=== PATIENT | female | born 1980 | race Caucasian/White ===

== ENCOUNTER 2016-10-10 22:56 | Emergency (ER) | payer OTHER ==
--- NOTE | 2016-10-11 01:00 | ED NURSING NOTES ---
Clinical Report - Nurses [facility] [address] [place] [address] 10/10/2016 22:56 Patient: ANA PICKETT TRIAGE Triage time 2316. Acuity: LEVEL 3. Chief Complaint: FEVER, SORE THROAT and BODY ACHES and SINUS DRAINAGE, SINUS CONGESTION, CHILLS, RUNNY NOSE and FATIGUE. --23:21 Damian Vincent R.N. 23:14 10/10/16. BP: 105/50. HR: 110. RR: 18. O2 saturation: 98%. Temp: 99.7 F. Pain level now 7/10. --23:21 Damian Vincent R.N. Weight: 106.1 kg stated. Height/Length: 66 inches Per Patient. BMI: 37.8. --23:21 Damian Vincent R.N. Medications Flonase Nasal. --23:18 Damian Vincent R.N. Allergies Augmentin. --23:18 Damian Vincent R.N. Maxalt. --23:19 Damian Vincent R.N. Zolmig. --23:20 Damian Vincent R.N. History Arrived by private vehicle. Historian: spouse and patient. Accompanied by spouse. Onset. (3 days ago). 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 PAST MEDICAL HX: Last normal menstrual period was 2 weeks ago. SOCIAL HX: No alcohol use or drug use. FALL RISK ASSESSMENT: Fall risk assessment completed. No fall risk identified. NUTRITIONAL RISK ASSESSMENT: The nutritional risk assessment revealed no deficiencies. FUNCTIONAL ASSESSMENT: Functional assessment: no impairments noted. LEARNING NEEDS ASSESSMENT: The learning needs assessment revealed no barriers. SKIN INTEGRITY ASSESSMENT: Skin integrity risk assessment completed. No skin integrity risk identified. --23:21 Damian Vincent R.N. PROBLEMS: Sinus Problems. Sinusitis. Acute Pain. Headache. Chronic Headache. Sick Contact. Gastroesophageal Reflux Disease. Immunizations. LNMP - Last Normal Menstrual Period. . Palpitations. Hernia. GERD. --23:20 Damian Vincent R.N. ADDITIONAL SURGERIES: Cholecystectomy. . Endoscopy. Sinus Surgery. --23:20 Damian Vincent R.N. Interventions ID band on patient. --23:21 Damian Vincent R.N. PHYSICAL ASSESSMENT GENERAL / NEURO / PSYCH: Alert. Oriented X 4. She appears uncomfortable. HEENT: Pupils equal, round and reactive to light. Mucous membranes are pink. RESPIRATORY: Respirations not labored. Chest nontender. CVS: Normal sinus rhythm noted. Capillary refill less than 2 seconds. Pulses within normal limits. GI / : Abdomen soft. SKIN: Skin intact. Skin is warm and dry. Normal skin turgor. --23:22 Damian Vincent R.N. NURSING PROGRESS NOTES Patient gowned. Head of bed elevated. Reassurance given. Patient identifiers checked. Call light placed in reach. Bed placed in lowest position. Brakes of bed on. --23:22 Damian Vincent R.N. 00:26. Patient ID band checked for patient name and birthdate: patient confirmed. Clean catch urine collected with return of yellow-colored clear urine; sample sent to lab for urinalysis and HCG. Specimen labeled in the presence of the patient. --00:31 Omar Lua R.N. DISPOSITION / DISCHARGE Departure time: 103. Condition at departure: improved. No learning barriers present. Discharge instructions provided and reviewed with the patient and spouse. Reviewed warnings. Reviewed medication(s). Treatments reviewed. Patient and spouse verbalized understanding. Written instructions provided in Malay. The patient was discharged by the physician. She was discharged home and accompanied by spouse. She left the Emergency Department ambulatory and via private vehicle. Spouse driving. --01:08 Damian Vincent R.N. 01:07 10/11/16. BP: 111/50. HR: 88. RR: 18. O2 saturation: 99%. Temp: 99 F. Pain level now 0/10. --01:08 Damian Vincent R.N. Locked/Released at 10/11/2016 1:08 by Damian Vincent R.N.
--- NOTE | 2016-10-11 01:00 | ED ORDER SUMMARY ---
..... Patient: ANA PICKETT OrderSheet [facility] VisitID: [id number] [address] [place] [address] 35y, F Registration Date/Time: 10/10/2016 ORDER SHEET Weight: 106.1 kg (stated) Allergies: Augmentin, Maxalt, Zolmig GENERAL ORDERS: Rapid Influenza Screen (Nasal Pharyngeal) (swab) Urgent (23:29 10/10/2016 Staci LAURENT) (Ack 23:31 CHagerty ER Charter Boat Operator) (0:27 JBullard R.N.) UA-Culture if indicated Urgent (23:30 10/10/2016 Staci LAURENT) (Ack 23:31 CHagmarcela ER Charter Boat Operator) (0:30 JBullard R.N.) Urine Urgent (23:30 10/10/2016 Staci LAURENT) (Ack 23:31 CHagerty ER Charter Boat Operator) (0:30 JBullard R.N.) MEDICATION ORDERS: IV FLUIDS: ORDER SHEET NOTES: [Electronically signed by Damian Vincent R.N. (01:08 10/11/2016)] [Electronically signed by Dion Mckenzie MD (11:53 10/14/2016)] [Electronically locked/signed by Damian Vincent R.N. (01:08 10/11/2016)]
--- NOTE | 2016-10-11 01:00 | ED ORDER SUMMARY ---
..... Patient: ANA PICKETT OrderSheet [facility] VisitID: [id number] [address] [place] [address] 35y, F Registration Date/Time: 10/10/2016 ORDER SHEET Weight: 106.1 kg (stated) Allergies: Augmentin, Maxalt, Zolmig GENERAL ORDERS: Rapid Influenza Screen (Nasal Pharyngeal) (swab) Urgent (23:29 10/10/2016 Staci LAURENT) (Ack 23:31 CHagerty ER Slitter Cut Off Operator) (0:27 JBullard R.N.) UA-Culture if indicated Urgent (23:30 10/10/2016 Staci LAURENT) (Ack 23:31 CHagmarcela ER Slitter Cut Off Operator) (0:30 JBullard R.N.) Urine Urgent (23:30 10/10/2016 Staci LAURENT) (Ack 23:31 CHagerty ER Slitter Cut Off Operator) (0:30 JBullard R.N.) MEDICATION ORDERS: IV FLUIDS: ORDER SHEET NOTES: [Electronically signed by Damian Vincent R.N. (01:08 10/11/2016)] [Electronically signed by Dion Mckenzie MD (11:53 10/14/2016)] [Electronically locked/signed by Damian Vincent R.N. (01:08 10/11/2016)]
--- NOTE | 2016-10-11 01:00 | ED NURSING NOTES ---
Clinical Report - Nurses [facility] [address] [place] [address] 10/10/2016 22:56 Patient: ANA PICKETT TRIAGE Triage time 2316. Acuity: LEVEL 3. Chief Complaint: FEVER, SORE THROAT and BODY ACHES and SINUS DRAINAGE, SINUS CONGESTION, CHILLS, RUNNY NOSE and FATIGUE. --23:21 Damian Vincent R.N. 23:14 10/10/16. BP: 105/50. HR: 110. RR: 18. O2 saturation: 98%. Temp: 99.7 F. Pain level now 7/10. --23:21 Damian Vincent R.N. Weight: 106.1 kg stated. Height/Length: 66 inches Per Patient. BMI: 37.8. --23:21 Damian Vincent R.N. Medications Flonase Nasal. --23:18 Damian Vincent R.N. Allergies Augmentin. --23:18 Damian Vicnent R.N. Maxalt. --23:19 Damian Vincent R.N. Zolmig. --23:20 Damian Vincent R.N. History Arrived by private vehicle. Historian: spouse and patient. Accompanied by spouse. Onset. (3 days ago). 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 PAST MEDICAL HX: Last normal menstrual period was 2 weeks ago. SOCIAL HX: No alcohol use or drug use. FALL RISK ASSESSMENT: Fall risk assessment completed. No fall risk identified. NUTRITIONAL RISK ASSESSMENT: The nutritional risk assessment revealed no deficiencies. FUNCTIONAL ASSESSMENT: Functional assessment: no impairments noted. LEARNING NEEDS ASSESSMENT: The learning needs assessment revealed no barriers. SKIN INTEGRITY ASSESSMENT: Skin integrity risk assessment completed. No skin integrity risk identified. --23:21 Damian Vincent R.N. PROBLEMS: Sinus Problems. Sinusitis. Acute Pain. Headache. Chronic Headache. Sick Contact. Gastroesophageal Reflux Disease. Immunizations. LNMP - Last Normal Menstrual Period. . Palpitations. Hernia. GERD. --23:20 Damian Vincent R.N. ADDITIONAL SURGERIES: Cholecystectomy. . Endoscopy. Sinus Surgery. --23:20 Damian Vincent R.N. Interventions ID band on patient. --23:21 Damian Vincent R.N. PHYSICAL ASSESSMENT GENERAL / NEURO / PSYCH: Alert. Oriented X 4. She appears uncomfortable. HEENT: Pupils equal, round and reactive to light. Mucous membranes are pink. RESPIRATORY: Respirations not labored. Chest nontender. CVS: Normal sinus rhythm noted. Capillary refill less than 2 seconds. Pulses within normal limits. GI / : Abdomen soft. SKIN: Skin intact. Skin is warm and dry. Normal skin turgor. --23:22 Damian Vincent R.N. NURSING PROGRESS NOTES Patient gowned. Head of bed elevated. Reassurance given. Patient identifiers checked. Call light placed in reach. Bed placed in lowest position. Brakes of bed on. --23:22 Damian Vincent R.N. 00:26. Patient ID band checked for patient name and birthdate: patient confirmed. Clean catch urine collected with return of yellow-colored clear urine; sample sent to lab for urinalysis and HCG. Specimen labeled in the presence of the patient. --00:31 Omar Lua R.N. DISPOSITION / DISCHARGE Departure time: 103. Condition at departure: improved. No learning barriers present. Discharge instructions provided and reviewed with the patient and spouse. Reviewed warnings. Reviewed medication(s). Treatments reviewed. Patient and spouse verbalized understanding. Written instructions provided in Icelandic. The patient was discharged by the physician. She was discharged home and accompanied by spouse. She left the Emergency Department ambulatory and via private vehicle. Spouse driving. --01:08 Damian Vincent R.N. 01:07 10/11/16. BP: 111/50. HR: 88. RR: 18. O2 saturation: 99%. Temp: 99 F. Pain level now 0/10. --01:08 Damian Vincent R.N. Locked/Released at 10/11/2016 1:08 by Damian Vincent R.N.
--- NOTE | 2016-10-11 01:00 | ED CLINICAL REPORT ---
Clinical Report - Physicians/Mid Levels [facility] [address] [place] [address] 10/10/2016 22:56 Patient: ANA PICKETT Time Seen: 23:23 Oct 10 2016. Arrived- By private vehicle. Historian- patient. CPT: ER phys charges level 4 (#[id number]). HISTORY OF PRESENT ILLNESS Chief Complaint: COUGH, SORE THROAT, SINUS PAIN, FEVER, CHILLS and MUSCLE ACHES. 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 The illness is described as moderate. The patient has had a cough, fever, chills and muscle aches. She has had moderate amounts of yellow sputum. Similar symptoms previously: None. Recent medical care: Not recently seen/assessed. REVIEW OF SYSTEMS No nausea, vomiting, diarrhea, abdominal pain or pedal edema. No calf pain, difficulty with urination, skin rash or enlarged lymph nodes. Denies current . She has had joint pain. The patient has had urinary frequency. All systems otherwise negative, except as recorded above. PAST HISTORY Sinusitis. Chronic Headache. Gastroesophageal Reflux Disease. Immunizations. LNMP - Last Normal Menstrual Period. Palpitations. Hernia. GERD Cholecystectomy. . times 2 Endoscopy. Sinus Surgery times 2. Medications: Flonase Nasal. Allergies: Augmentin. Maxalt. Zolmig. SOCIAL HISTORY No alcohol use or drug use. ADDITIONAL NOTES The nursing notes have been reviewed. PHYSICAL EXAM Vital Signs: 10/10/2016 23:14 BP: 105/50. HR: 110. RR: 18. O2 saturation: 98%. Temp: 99.7 F. Appearance: Alert. No acute distress. Head: Tenderness present to percussion/palpation of the sinuses: mild right and left maxillary tenderness. Eyes: Pupils equal, round and reactive to light. Eyes normal inspection. ENT: Ears normal. Pharynx normal. Uvula midline. Neck: Normal inspection. Neck supple. CVS: Normal heart rate and rhythm. Heart sounds normal. Pulses normal. Respiratory: No respiratory distress. Breath sounds normal. Abdomen: Soft and nontender. Back: Normal inspection. Skin: Skin warm. Normal skin color. No rash. Extremities: Extremities exhibit normal ROM. No lower extremity edema. Neuro: Oriented X 3. No motor deficit. No sensory deficit. Reflexes normal. LABS, X-RAYS, AND EKG Laboratory Tests: UA-Culture if indicated: (ERIBERTO: 10/11/2016 00:26) ( [facility] 10/11/2016 01:04) Final results Test Result Flag Units (Reference) URINE COLOR YELLOW URINE APPEARANCE CLEAR URINE GLUCOSE NEGATIVE (NEGATIVE) URINE BILIRUBIN NEGATIVE (NEGATIVE) URINE KETONE 1+ (NEGATIVE) URINE SPECIFIC GRAVITY <= 1.005 L (1.010-1.030) URINE PH 6.0 (5.0-8.0) URINE PROTEIN NEGATIVE (NEGATIVE) URINE UROBILINOGEN 0.2 EU/dL (0.2-1.0) URINE NITRITE NEGATIVE (NEGATIVE) URINE BLOOD NEGATIVE (NEGATIVE) URINE LEUK ESTERASE NEGATIVE (NEGATIVE) URINE RBC 0-1 rbc/hpf (0-1) URINE WBC 0-1 wbc/hpf (0-1) URINE EPITHELIAL CELLS 1-3 EPI/hpf (0-5) URINE BACTERIA NONE SEEN (NONE SEEN) URINE COMMENT CULT NOT INDICATED URINE CULTURES ARE SET-UP BASED ON THE FOLLOWING CRITERIA:POSITIVE NITRITEPOSITIVE LEUKOCYTE ESTERASEGREATER THAN 10 WHITE BLOOD CELLSMODERATE (2+) OR GREATER BACTERIA Urine: (ERIBERTO: 10/11/2016 00:26) ( [facility] 10/11/2016 00:55) Final results Test Result Flag Units (Reference) URINE NEGATIVE Rapid Influenza Screen: (ERIBERTO: 10/10/2016 23:25) ( [facility] 10/10/2016 23:46) Final results SPECIMEN DESCRIPTION: SWAB Test Result Flag Units (Reference) RAPID INFLUENZA SCREEN CALLED TO: NA -- DATE: 10/10/16 INFLUENZA A: NEGATIVE SCREEN FOR INFLUENZA A INFLUENZA B: NEGATIVE SCREEN FOR INFLUENZA B . PROGRESS AND PROCEDURES Patient/family counseled. Disposition: Discharged. Condition: stable. CLINICAL IMPRESSION Acute maxillary sinusitis Acute bacterial mucopurulent bronchitis. INSTRUCTIONS Drink plenty of fluids. Warnings: Further evaluation is necessary. GENERAL WARNINGS: Return or contact your physician immediately if your condition worsens or changes unexpectedly, if not improving as expected, or if other problems arise. Prescription Medications: Zithromax Z-Yaya: Take according to package instructions. One refill. Follow-up: Follow up with your doctor in one week. Call for an appointment. Understanding of the discharge instructions verbalized by patient. (Electronically signed by Dion Mckenzie MD 10/14/2016 11:53)
--- NOTE | 2016-10-11 01:00 | ED CLINICAL REPORT ---
Clinical Report - Physicians/Mid Levels [facility] [address] [place] [address] 10/10/2016 22:56 Patient: ANA PICKETT Time Seen: 23:23 Oct 10 2016. Arrived- By private vehicle. Historian- patient. CPT: ER phys charges level 4 (#[id number]). HISTORY OF PRESENT ILLNESS Chief Complaint: COUGH, SORE THROAT, SINUS PAIN, FEVER, CHILLS and MUSCLE ACHES. 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 The illness is described as moderate. The patient has had a cough, fever, chills and muscle aches. She has had moderate amounts of yellow sputum. Similar symptoms previously: None. Recent medical care: Not recently seen/assessed. REVIEW OF SYSTEMS No nausea, vomiting, diarrhea, abdominal pain or pedal edema. No calf pain, difficulty with urination, skin rash or enlarged lymph nodes. Denies current . She has had joint pain. The patient has had urinary frequency. All systems otherwise negative, except as recorded above. PAST HISTORY Sinusitis. Chronic Headache. Gastroesophageal Reflux Disease. Immunizations. LNMP - Last Normal Menstrual Period. Palpitations. Hernia. GERD Cholecystectomy. . times 2 Endoscopy. Sinus Surgery times 2. Medications: Flonase Nasal. Allergies: Augmentin. Maxalt. Zolmig. SOCIAL HISTORY No alcohol use or drug use. ADDITIONAL NOTES The nursing notes have been reviewed. PHYSICAL EXAM Vital Signs: 10/10/2016 23:14 BP: 105/50. HR: 110. RR: 18. O2 saturation: 98%. Temp: 99.7 F. Appearance: Alert. No acute distress. Head: Tenderness present to percussion/palpation of the sinuses: mild right and left maxillary tenderness. Eyes: Pupils equal, round and reactive to light. Eyes normal inspection. ENT: Ears normal. Pharynx normal. Uvula midline. Neck: Normal inspection. Neck supple. CVS: Normal heart rate and rhythm. Heart sounds normal. Pulses normal. Respiratory: No respiratory distress. Breath sounds normal. Abdomen: Soft and nontender. Back: Normal inspection. Skin: Skin warm. Normal skin color. No rash. Extremities: Extremities exhibit normal ROM. No lower extremity edema. Neuro: Oriented X 3. No motor deficit. No sensory deficit. Reflexes normal. LABS, X-RAYS, AND EKG Laboratory Tests: UA-Culture if indicated: (ERIBERTO: 10/11/2016 00:26) ( [facility] 10/11/2016 01:04) Final results Test Result Flag Units (Reference) URINE COLOR YELLOW URINE APPEARANCE CLEAR URINE GLUCOSE NEGATIVE (NEGATIVE) URINE BILIRUBIN NEGATIVE (NEGATIVE) URINE KETONE 1+ (NEGATIVE) URINE SPECIFIC GRAVITY <= 1.005 L (1.010-1.030) URINE PH 6.0 (5.0-8.0) URINE PROTEIN NEGATIVE (NEGATIVE) URINE UROBILINOGEN 0.2 EU/dL (0.2-1.0) URINE NITRITE NEGATIVE (NEGATIVE) URINE BLOOD NEGATIVE (NEGATIVE) URINE LEUK ESTERASE NEGATIVE (NEGATIVE) URINE RBC 0-1 rbc/hpf (0-1) URINE WBC 0-1 wbc/hpf (0-1) URINE EPITHELIAL CELLS 1-3 EPI/hpf (0-5) URINE BACTERIA NONE SEEN (NONE SEEN) URINE COMMENT CULT NOT INDICATED URINE CULTURES ARE SET-UP BASED ON THE FOLLOWING CRITERIA:POSITIVE NITRITEPOSITIVE LEUKOCYTE ESTERASEGREATER THAN 10 WHITE BLOOD CELLSMODERATE (2+) OR GREATER BACTERIA Urine: (ERIBERTO: 10/11/2016 00:26) ( [facility] 10/11/2016 00:55) Final results Test Result Flag Units (Reference) URINE NEGATIVE Rapid Influenza Screen: (ERIBERTO: 10/10/2016 23:25) ( [facility] 10/10/2016 23:46) Final results SPECIMEN DESCRIPTION: SWAB Test Result Flag Units (Reference) RAPID INFLUENZA SCREEN CALLED TO: NA -- DATE: 10/10/16 INFLUENZA A: NEGATIVE SCREEN FOR INFLUENZA A INFLUENZA B: NEGATIVE SCREEN FOR INFLUENZA B . PROGRESS AND PROCEDURES Patient/family counseled. Disposition: Discharged. Condition: stable. CLINICAL IMPRESSION Acute maxillary sinusitis Acute bacterial mucopurulent bronchitis. INSTRUCTIONS Drink plenty of fluids. Warnings: Further evaluation is necessary. GENERAL WARNINGS: Return or contact your physician immediately if your condition worsens or changes unexpectedly, if not improving as expected, or if other problems arise. Prescription Medications: Zithromax Z-Yaya: Take according to package instructions. One refill. Follow-up: Follow up with your doctor in one week. Call for an appointment. Understanding of the discharge instructions verbalized by patient. (Electronically signed by Dion Mckenzie MD 10/14/2016 11:53)
--- NOTE | 2016-10-14 11:53 | ED MAR SUMMARY ---
..... Medication Administration Record [facility] [address] [place], [place] [id number] Patient: ANA PICKETT Visit ID: [id number] 35y, F Weight: 106.1 kg Height/Length: 66 in BMI: 37.8 ALLERGIES: Zolmig, Maxalt, Augmentin
--- NOTE | 2016-10-14 11:53 | ED MAR SUMMARY ---
..... Medication Administration Record [facility] [address] [place], [place] [id number] Patient: ANA PICKETT Visit ID: [id number] 35y, F Weight: 106.1 kg Height/Length: 66 in BMI: 37.8 ALLERGIES: Zolmig, Maxalt, Augmentin
--- NOTE | 2016-10-14 11:53 | ED DISCHARGE INSTRUCTIONS ---
Patient: ANA PICKETT General Instructions [facility] VisitID: [id number] [place] [address] 35y, F Registration Date/Time: 10/10/2016 Acute maxillary sinusitis INSTRUCTIONS Drink plenty of fluids. Warnings: Further evaluation is necessary. GENERAL WARNINGS: Return or contact your physician immediately if your condition worsens or changes unexpectedly, if not improving as expected, or if other problems arise. Prescription Medications: Zithromax Z-Yaya: Take according to package instructions. One refill. Follow-up: Follow up with your doctor in one week. Call for an appointment. Understanding of the discharge instructions verbalized by patient. ADDITIONAL INFORMATION Sinusitis [Abx Tx] The sinuses are air-filled spaces within the bones of the face. They connect to the inside of the nose. Sinusitis is an inflammation of the tissue lining the sinus cavity. Sinus inflammation can occur during a cold or hay-fever (allergies to pollens and other particles in the air) and cause symptoms of sinus congestion and fullness. A sinus infection causes fever, headache and facial pain. There is usually green or yellow drainage from the nose or into the back of the throat (post-nasal drip). Antibiotics are prescribed to treat this condition. Home Care: Drink plenty of water, hot tea, and other liquids to stay well hydrated. This thins the mucus and promotes sinus drainage. Apply heat to the painful areas of the face. Use a towel soaked in hot water. Or, inside sales agent the shower and direct the hot spray onto your face. This is a good way to inhale warm water vapor and get heat on your face at the same time. (Cover your mouth and nose with your hands so you can still breathe as you do this.) Use a vaporizer with products such as Vicks VapoRub (contains menthol) at night. Suck on peppermint, menthol or eucalyptus hard candies during the day. An expectorant containing guaifenesin (such as Robitussin), helps to thin the mucus and promote drainage from the sinuses. Ajwz-edb-duvazdy decongestants may be used unless a similar medicine was prescribed. Nasal sprays work the fastest. Use one that contains phenylephrine (Helder-synephrine, Sinex and others) or oxymetazoline (Afrin). First blow the nose gently to remove mucus, then apply the drops. Do not use these medicines more often than directed on the label or for more than three days or symptoms may worsen. You may also use tablets containing pseudoephedrine (Sudafed). Many sinus remedies combine ingredients, which may increase side effects. Read the labels or ask the pharmacist for help. NOTE: Persons with high blood pressure should not use decongestants. They can raise blood pressure. Antihistamines are useful if allergies are a cause of your sinusitis. The mildest one is chlorpheniramine (available without a prescription). The dose for adults is 8-12mg three times a day. [NOTE: Do not use chlorpheniramine if you have glaucoma or if you are a man with trouble urinating due to an enlarged prostate.] Claritin (loratidine) is an antihistamine that causes less drowsiness and is a good alternative for daytime use. Do not use nasal rinses or irrigation during an acute sinus infection, unless advised by your doctor. Rinsing may spread the infection to other sinuses. You may use acetaminophen (Tylenol) or ibuprofen (Motrin, Advil) to control pain, unless another pain medicine was prescribed. [ NOTE: If you have chronic liver or kidney disease or ever had a stomach ulcer, talk with your doctor before using these medicines.] (Aspirin should never be used in anyone under 18 years of age who is ill with a fever. It may cause severe liver damage.) Finish the full course, even if you are feeling better after a few days. Follow Up with your doctor or this facility in one week or as instructed by our staff if not improving. Get Prompt Medical Attention if any of the following occur: Facial pain or headache becomes more severe Stiff neck Unusual drowsiness or confusion, or not acting like your normal self Swelling of the forehead or eyelids Vision problems including blurred or double vision Fever of 100.4F (38C) or higher, or as directed by your healthcare provider Seizure Bronchitis (Adult: Abx Tx) BRONCHITIS is an infection of the air passages (bronchial tubes). It often occurs during the common cold. Symptoms include cough with mucus (phlegm) and low-grade fever. Bronchitis usually lasts 7-14 days. Mild cases can be treated with simple home remedies. More severe infection is treated with an antibiotic. Home Care: If symptoms are severe, rest at home for the first 2-3 days. When you resume activity, don't let yourself get too tired. Do not smoke. Avoid being exposed to the smoke of others. You may use acetaminophen (Tylenol) or ibuprofen (Motrin, Advil) to control fever or pain, unless another medicine was prescribed for this. [NOTE: If you have chronic liver or kidney disease or ever had a stomach ulcer or GI bleeding, talk with your doctor before using these medicines.] Your appetite may be poor, so a light diet is fine. Avoid dehydration by drinking 6-8 glasses of fluids per day (water, soft, drinks, juices, tea, soup, etc.). Extra fluids will help loosen secretions in the lungs. Zccm-fwj-gyktqkn cough medicines that containdextromethorphan(such as Robitussin DM) and decongestants (Actifed or Sudafed) may help relieve cough and congestion. [NOTE: Do not use decongestants if you have high blood pressure.] Finish all antibiotic medicine, even if you are feeling better after only a few days. Follow Up with your doctor or as directed if you dont start to feel better after three days. [NOTE: If you are age 65 or older, or if you have chronic asthma or COPD, we recommend a PNEUMOCOCCAL VACCINATION every five years and a yearly INFLUENZAVACCINATION (FLU-SHOT) every . Ask your doctor about this. If you had an X-ray, a radiologist will review it. You will be notified of any new findings that may affect your care.] Get Prompt Medical Attention if any of the following occur: Fever over 100.4F (38.0C) for more than three days Trouble breathing, wheezing or pain with breathing Coughing up blood or increased amounts of colored sputum Weakness, drowsiness, headache, facial pain, ear pain or a stiff neck You have been given the following additional information: Sinusitis, Abx Tx Bronchitis, Antiobiotic Treatment (Adult) (Electronically signed by Dion Mckenzie MD 10/14/2016 11:53)
--- NOTE | 2016-10-14 11:53 | ED MED RECONCILIATION SUMMARY ---
Patient: ANA PICKETT Medication Reconciliation Report [facility] VisitID: [id number] [address] [place] [address] 35y, F Registration Date/Time: 10/10/2016 Weight: 106.1 kg Height/Length: 66 in. BMI: 37.8 ALLERGIES: Augmentin, Maxalt, Zolmig The patient's Home Medications are listed below: THE FOLLOWING MEDICATIONS NEED TO BE RECONCILED: Flonase Nasal The source(s) of the original Home Medication information: Not obtained. The following Medications were given to the patient in the Emergency Department: None. The following Medications were prescribed to the patient: Zithromax Z-Yaya: Take according to package instructions. One refill. -- Dion Mckenzie MD
--- NOTE | 2016-10-14 11:53 | ED MED RECONCILIATION SUMMARY ---
Patient: ANA PICKETT Medication Reconciliation Report [facility] VisitID: [id number] [address] [place] [address] 35y, F Registration Date/Time: 10/10/2016 Weight: 106.1 kg Height/Length: 66 in. BMI: 37.8 ALLERGIES: Augmentin, Maxalt, Zolmig The patient's Home Medications are listed below: THE FOLLOWING MEDICATIONS NEED TO BE RECONCILED: Flonase Nasal The source(s) of the original Home Medication information: Not obtained. The following Medications were given to the patient in the Emergency Department: None. The following Medications were prescribed to the patient: Zithromax Z-Yaya: Take according to package instructions. One refill. -- Dion Mckenzie MD
== END 2016-10-11 01:04 | disposition home or self-care (01) ==
LOC: ED SRH 22:56
DX: J01.00 Acute maxillary sinusitis, unspecified (principal); J20.9 Acute bronchitis, unspecified; Z79.2 Long term (current) use of antibiotics; Z88.8 Allergy status to other drugs, medicaments and biological substances
CPT/HCPCS: 90004; 91400; 93070

== ENCOUNTER 2016-12-17 12:38 | Emergency (ER) | payer OTHER ==
--- NOTE | 2016-12-17 13:23 | DIAGNOSTIC IMAGING REPORT ---
PROCEDURE: XR CHEST 1 VIEW INDICATION: SHORTNESS OF BREATH TECHNIQUE: Portable AP view 12:30 p.m. COMPARISON: None. FINDINGS: Lungs are clear. Heart and mediastinum are normal. Thorax is normal. IMPRESSION: 1. Negative chest.
--- NOTE | 2016-12-17 15:04 | ED CLINICAL REPORT ---
Clinical Report - Physicians/Mid Levels [facility] [address] [place] [address] 12/17/2016 12:40 Patient: ANA PICKETT Time Seen: 13:07 Dec 17 2016; initial documentation. Arrived- By private vehicle. Historian- patient. CPT: ER phys charges level 4 plus (#[id number]). EKG interpretation (#[id number]). HISTORY OF PRESENT ILLNESS Chief Complaint: DYSPNEA and Onset. (0900). She has had difficulty breathing and nausea. This started today and is now gone. The dyspnea is described as moderate. (nothing). No cough, sputum production, fever, wheezing or dyspnea on exertion. No chest pain or calf pain. She has had mild chest soreness. Similar symptoms previously: None. Recent medical care: Not recently seen/assessed. REVIEW OF SYSTEMS The patient has not had weight loss. No muscle aches, sore throat, nasal discharge, sinus drainage or nausea. No vomiting or skin rash. Denies current . Left greater than right wrists hurt and have on and off for months. Hands go numb at night. All systems otherwise negative, except as recorded above. PAST HISTORY Sinusitis. Chronic Headache. Gastroesophageal Reflux Disease. Immunizations. LNMP - Last Normal Menstrual Period. Palpitations. Hernia. GERD Cholecystectomy. . times 2 Endoscopy. Sinus Surgery times 2. Medications: Flonase Nasal 2 sprays, daily. Allergies: Augmentin.(rash, vomiting) Maxalt. (neck pain and stiffness , N/V) Zolmig. (Neck pain, stiffness, N/V). SOCIAL HISTORY Never smoker. No alcohol use or drug use. ADDITIONAL NOTES The nursing notes have been reviewed. PHYSICAL EXAM Vital Signs: 12/17/2016 12:45 BP: 109/59. HR: 82. RR: 18. O2 saturation: 100%. Temp: 98.4 F. Pain level now: 2/10. Appearance: Alert. No acute distress. Eyes: Pupils equal, round and reactive to light. Eyes normal inspection. ENT: Ears normal. Nose normal. Pharynx normal. Uvula midline. Neck: Normal inspection. No jugular venous distention. Neck supple. CVS: Normal heart rate and rhythm. Heart sounds normal. Pulses normal. Respiratory: No respiratory distress. Breath sounds normal. Abdomen: Soft and nontender. Back: Normal inspection. Skin: Skin warm. Normal skin color. No rash. Extremities: Extremities exhibit normal ROM. Neuro: Oriented X 3. No motor deficit. No sensory deficit. Reflexes normal. (Tinnels mildly postive.). LABS, X-RAYS, AND EKG EKG: Normal sinus rhythm. Abnormal rhythm present (Sinus arrhythmia). Normal P waves. Normal MARIO. Normal QRS complex. Normal axis. Normal ST and T waves. Prior EKG unavailable. The study has been interpreted contemporaneously. The study has been independently viewed by me. The EKG appears to be a good tracing. Chest X-ray: Normal Chest X-Ray. Laboratory Tests: UA-Culture if indicated: (ERIBERTO: 12/17/2016 13:00) ( [facility] 12/17/2016 13:42) Final results Test Result Flag Units (Reference) URINE COLOR YELLOW URINE APPEARANCE CLEAR URINE GLUCOSE NEGATIVE (NEGATIVE) URINE BILIRUBIN NEGATIVE (NEGATIVE) URINE KETONE NEGATIVE (NEGATIVE) URINE SPECIFIC GRAVITY 1.010 (1.010-1.030) URINE PH 5.5 (5.0-8.0) URINE PROTEIN NEGATIVE (NEGATIVE) URINE UROBILINOGEN 0.2 EU/dL (0.2-1.0) URINE NITRITE NEGATIVE (NEGATIVE) URINE BLOOD NEGATIVE (NEGATIVE) URINE LEUK ESTERASE NEGATIVE (NEGATIVE) URINE RBC NONE SEEN rbc/hpf (0-1) URINE WBC 0-1 wbc/hpf (0-1) URINE EPITHELIAL CELLS 5-10 EPI/hpf (0-5) URINE BACTERIA MODERATE (2+ TO 3+) (NONE SEEN) URINE COMMENT CULTURE INDICATED URINE CULTURES ARE SET-UP BASED ON THE FOLLOWING CRITERIA:POSITIVE NITRITEPOSITIVE LEUKOCYTE ESTERASEGREATER THAN 10 WHITE BLOOD CELLSMODERATE (2+) OR GREATER BACTERIA CBC w Diff: (ERIBERTO: 12/17/2016 13:18) ( [facility] 12/17/2016 13:49) Final results Test Result Flag Units (Reference) WHITE BLOOD COUNT 10.4 K/uL (4.5-11.5) RED BLOOD COUNT 4.91 M/uL (4.00-5.20) HEMOGLOBIN 13.6 gm/dL (12.0-16.0) HEMATOCRIT 40.7 % (36.0-46.0) MEAN CELL VOLUME 83 fL (80-100) MEAN CORPUSCULAR HGB 28 pg (26-34) MEAN CORPUSCULAR HGB CONC 33 g/dL (31-37) RED CELL DISTRIBUTION WIDTH 13.9 % (11.6-14.8) PLATELET COUNT 276 K/uL (150-400) NEUTROPHIL % 76.8 H % (50-75) LYMPH % 15.1 L % (25-40) MONO % 4.2 % (3-14) EOSINOPHIL % 3.1 % (0-4) BASOPHIL % 0.8 % (0-2) CHEM 13 PANEL: (ERIBERTO: 12/17/2016 13:18) ( MsgRcvd 12/17/2016 14:24) Final results Test Result Flag Units (Reference) GLUCOSE 96 mg/dL (70-110) BUN 11 mg/dL (7-18) CREATININE 0.8 mg/dL (0.6-1.3) Estimated GFR >60 mL/min Estimated GFR- >60 mL/min Note: Persistent reduction over 3 months in eGFR<60 mL/min/1.73 m2 defines CKD. Patients with eGFR values>=60 mL/min/1.73 m2 may also have CKD if evidence ofpersistent proteinuria. Additional information may be foundat www.kidney.org. SODIUM 139 mmol/L (136-145) POTASSIUM 3.5 mmol/L (3.5-5.1) CHLORIDE 103 mmol/L (98-107) CARBON DIOXIDE 25 mmol/L (21-32) CALCIUM 9.0 mg/dL (8.5-10.1) TOTAL PROTEIN 7.6 g/dL (6.4-8.2) ALBUMIN 3.4 g/dL (3.3-5.0) BILIRUBIN, TOTAL 0.3 mg/dL (0.0-1.0) ALKALINE PHOSPHATASE 104 U/L (46-116) AST (SGOT) 16 U/L (15-37) ALT (SGPT) 15 U/L (12-78) MAGNESIUM 1.9 mg/dL (1.8-2.4) CPK 41 U/L (24-260) TROPONIN I <0.05 ng/mL (0.00-1.5) TROPONIN REFERENCE RANGE:<0.1 NEGATIVE0.1-1.5 INDETERMINANT>1.5 POSITIVE . PROGRESS AND PROCEDURES Course of Care: patient's exam and history are more consistent with carpal tunnel syndrome. Pt notes both hands have gone numb at night. She had pain develop in the left wrist and it radiated up the arm to the mid arm. It is better in laying arm on chest. She became quite anxious that it was not going away and developed transient chest tightness for a few minutes. This symptom is resolved and not reproducible on exam. Pt did get intermittent tachycardia with and never followed up with cardiology. She still has tachycardia with exercise she says. She is counseled to follow up with bookkeeper assistant as recommended. Patient/family counseled. Disposition: Discharged. CLINICAL IMPRESSION Bilateral carpal tunnel , Left greater than right. Anxiety reaction due to pain with resultant chest wall muscle spasm. INSTRUCTIONS No strenuous activity. (Splint for left wrist pain.). Warnings: Further evaluation is necessary. GENERAL WARNINGS: Return or contact your physician immediately if your condition worsens or changes unexpectedly, if not improving as expected, or if other problems arise. Your Current Medications: CONTINUE TAKING THE FOLLOWING MEDICATIONS: Flonase Nasal : 2 sprays daily. OTC Medications: Take ibuprofen (Advil, Nuprin, etc.) according to label instructions. Available over the counter. Follow-up: Follow up with your doctor in one week. Call for an appointment. Follow up with a bookkeeper assistant and neurologist. Call for the next available appointment. Reason for referral: to evaluate for carpal tunnel and palpitations. Understanding of the discharge instructions verbalized by patient. (Electronically signed by Dion Mckenzie MD 12/21/2016 7:38)
--- NOTE | 2016-12-17 15:04 | ED ORDER SUMMARY ---
..... Patient: ANA PICKETT OrderSheet [facility] VisitID: [id number] [place] [address] 36y, F Registration Date/Time: 12/17/2016 ORDER SHEET Weight: 106.5 kg (stated) Allergies: Augmentin, Maxalt, Zolmig GENERAL ORDERS: Ed Transporter (Continuous) (12:59 12/17/2016 DDean R.N. per protocol) (13:00 DDean R.N.) Chest 1V Urgent (12:59 12/17/2016 DDean R.N. per protocol) (Ack 13:10 IJurca ER Tech1) (13:26 DDean R.N.) UA-Culture if indicated Urgent (12:59 12/17/2016 DDean R.N. per protocol) (Ack 13:10 IJurca ER Tech1) (13:26 DDean R.N.) Cardiac Panel Stat (12:59 12/17/2016 DDean R.N. per protocol) (Ack 13:10 IJurca ER Tech1) (13:26 DDean R.N.) EKG - ER Stat (12:59 12/17/2016 DDean R.N. per protocol) (Ack 13:10 IJurca ER Tech1) (13:13 RKaruga) POC - Urine hCG (13:09 12/17/2016 DDean R.N. per protocol) (13:09 DDean R.N.) Splint (UE) (Left) (Velcro - wrist) (15:02 12/17/2016 Staci LAURENT) (Ack 15:03 IJurca ER Tech1) (15:17 IJurca ER Tech1) MEDICATION ORDERS: IV FLUIDS: IV Saline Lock (12:59 12/17/2016 DDean R.N. per protocol) (Ack 13:00 DDean R.N.) (13:26 DDean R.N.) ORDER SHEET NOTES: [Electronically signed by Pooja Urias R.N. (18:57 12/17/2016)] [Electronically signed by Dion Mckenzie MD (07:38 12/21/2016)] [Electronically locked/signed by Pooja Urias R.N. (18:57 12/17/2016)]
--- NOTE | 2016-12-17 15:04 | ED NURSING NOTES ---
Clinical Report - Nurses [facility] [address] [place] [address] 12/17/2016 12:40 Patient: ANA PICKETT TRIAGE Triage time 1242. Acuity: LEVEL 3. Chief Complaint: CHEST DISCOMFORT and (pt in c/o left arm pain starting around 0900 today, gradually spreading up arm and into chest. states that she has midsternal chest pressure 2/10, but arm pain is more at 5/10). --12:53 Pooja Urias R.N. 12:45 12/17/16. BP: 109/59. HR: 82. RR: 18. O2 saturation: 100% on room air. Temp: 98.4 F. Pain level now: 2/10. Additional comments: 2=chest, 5=arm . --12:53 Pooja Urias R.N. Weight: 106.5 kg stated. Height/Length: 66 inches Per Patient. BMI: 37.9. --12:49 Pooja Urias R.N. Medications Flonase Nasal 2 sprays, daily. --12:47 Pooja Urias R.N. Allergies Augmentin.(rash, vomiting) Maxalt. (neck pain and stiffness , N/V) Zolmig. (Neck pain, stiffness, N/V) --12:47 Pooja Urias R.N. History Arrived by private vehicle. Historian: patient. Unaccompanied. Primary physician (alessia). Onset. (0900). She has had difficulty breathing and nausea. ( left arm is heavy and painful "like a deep pain up into my armpit" also states hand feels cold, but has good distal color, temp and cap refill). No vomiting. PAST MEDICAL HX: Last normal menstrual period- 3 weeks. SOCIAL HX: Never smoker. No alcohol use or drug use. --12:53 Pooja Urias R.N. PROBLEMS: Fibromyalgia. PCOS. IBS. Bronchitis. Sinusitis. Headache. Chronic Headache. Gastroesophageal Reflux Disease. Palpitations. Hernia. GERD. --12:47 Pooja Urias R.N. ADDITIONAL SURGERIES: Cholecystectomy. . Endoscopy. Sinus Surgery. --12:47 Pooja Urias R.N. Interventions ID band on patient. To treatment room. --12:53 Pooja Urias R.N. PHYSICAL ASSESSMENT 12:42. Ambulatory to room. Patient gowned. GENERAL / NEURO / PSYCH: Alert. Oriented X 4. Appears anxious. RESPIRATORY: Respirations not labored. Chest wall tenderness. CVS: Pulses within normal limits. Capillary refill less than 2 seconds. GI / : Abdomen soft. EXTREMITIES: No lower extremity edema. SKIN: Skin is warm and dry. --12:54 Pooja Urias R.N. NURSING PROGRESS NOTES 12:42. Oxygen administered. cardiac monitor placed on patient; (NSR). Patient gowned. Head of bed elevated. Reassurance given. Patient identifiers checked. Call light placed in reach. Side rails up. Bed placed in lowest position. Patient ready for evaluation- chart flagged. --12:54 Pooja Urias R.N. 12:55 12/17/16. BP: 116/69. HR: 83. RR: 16. O2 saturation: 100%. Temp: deferred. Pain level now: 2/10. Additional comments: c/o nausea . --12:56 Pooja Urias R.N. 12:55. EKG time: (1255). EKG was performed by a nurse and shown to the ED physician. Done by BETH Dobson. --13:08 Pooja Urias R.N. 13:00. ( Pt ambulated to bathroom. UA obtained, Negative u-preg, ERMD notifed.). --13:08 Pooja Urias R.N. 13:09 12/17/16. Portable chest x-ray ordered, performed and shown to the ED physician. --13:09 Pooja Urias R.N. 13:18 12/17/2016 Site #1 started via IV in the right antecubital space with an 20g angiocath; one attempt. Blood drawn: rainbow set. Labeled in the presence of the patient and sent to the lab. Saline lock flushed with 10 mL saline. --13:25 Pooja Urias R.N. 13:30 12/17/16. BP: 117/69. HR: 76. RR: 18. O2 saturation: 99%. Temp: deferred. Pain level now: 10/15. --14:01 Pooja Urias R.N. Velcro upper extremity splint applied to left wrist by tech. Distal pulses intact, sensation intact and motor within normal limits. --15:31 Annie Peraza 14:20 12/17/16. BP: 124/70. HR: 80. RR: 16. O2 saturation: 98%. Temp: deferred. Pain level now: 10/15. --18:55 Pooja Urias R.N. late entry -14:20 pt resting in dark quiet room. waiting for lab results. --18:55 Pooja Urias R.N. 15:05 12/17/2016 Site #1 removed upon discharge. Bandaid applied. --18:56 Pooja Urias R.N. 15:05 12/17/2016 IV Saline Lock Drip IV Discontinued: bag #1 STOPPED upon discharge. Total amount infused: 0 mL. IV patency established. IV site checked: no pain, redness, or swelling. IV flushed thoroughly. --18:57 Pooja Urias R.N. DISPOSITION / DISCHARGE 15:12 12/17/16. BP: 105/68 (regular adult cuff) taken on the left arm, via an automated monitor, while lying. HR: 56. RR: 16. Temp: 98.3 F. --15:13 Annie Peraza 15:14 12/17/16. O2 saturation: 100% on room air. --15:14 Annie Peraza Departure time: 1520. --18:51 Pooja Urias R.N. 15:20. SCARLETT COMA SCORE: Scarlett Coma Scale: 15- eyes open spontaneously (4); best verbal response- oriented x 4 (5); best motor response- obeys commands (6). --18:53 Pooja Urias R.N. Locked/Released at 12/17/2016 18:57 by Pooja Urias R.N.
--- NOTE | 2016-12-17 15:04 | ED CLINICAL REPORT ---
Clinical Report - Physicians/Mid Levels [facility] [address] [place] [address] 12/17/2016 12:40 Patient: ANA PICKETT Time Seen: 13:07 Dec 17 2016; initial documentation. Arrived- By private vehicle. Historian- patient. CPT: ER phys charges level 4 plus (#[id number]). EKG interpretation (#[id number]). HISTORY OF PRESENT ILLNESS Chief Complaint: DYSPNEA and Onset. (0900). She has had difficulty breathing and nausea. This started today and is now gone. The dyspnea is described as moderate. (nothing). No cough, sputum production, fever, wheezing or dyspnea on exertion. No chest pain or calf pain. She has had mild chest soreness. Similar symptoms previously: None. Recent medical care: Not recently seen/assessed. REVIEW OF SYSTEMS The patient has not had weight loss. No muscle aches, sore throat, nasal discharge, sinus drainage or nausea. No vomiting or skin rash. Denies current . Left greater than right wrists hurt and have on and off for months. Hands go numb at night. All systems otherwise negative, except as recorded above. PAST HISTORY Sinusitis. Chronic Headache. Gastroesophageal Reflux Disease. Immunizations. LNMP - Last Normal Menstrual Period. Palpitations. Hernia. GERD Cholecystectomy. . times 2 Endoscopy. Sinus Surgery times 2. Medications: Flonase Nasal 2 sprays, daily. Allergies: Augmentin.(rash, vomiting) Maxalt. (neck pain and stiffness , N/V) Zolmig. (Neck pain, stiffness, N/V). SOCIAL HISTORY Never smoker. No alcohol use or drug use. ADDITIONAL NOTES The nursing notes have been reviewed. PHYSICAL EXAM Vital Signs: 12/17/2016 12:45 BP: 109/59. HR: 82. RR: 18. O2 saturation: 100%. Temp: 98.4 F. Pain level now: 2/10. Appearance: Alert. No acute distress. Eyes: Pupils equal, round and reactive to light. Eyes normal inspection. ENT: Ears normal. Nose normal. Pharynx normal. Uvula midline. Neck: Normal inspection. No jugular venous distention. Neck supple. CVS: Normal heart rate and rhythm. Heart sounds normal. Pulses normal. Respiratory: No respiratory distress. Breath sounds normal. Abdomen: Soft and nontender. Back: Normal inspection. Skin: Skin warm. Normal skin color. No rash. Extremities: Extremities exhibit normal ROM. Neuro: Oriented X 3. No motor deficit. No sensory deficit. Reflexes normal. (Tinnels mildly postive.). LABS, X-RAYS, AND EKG EKG: Normal sinus rhythm. Abnormal rhythm present (Sinus arrhythmia). Normal P waves. Normal MARIO. Normal QRS complex. Normal axis. Normal ST and T waves. Prior EKG unavailable. The study has been interpreted contemporaneously. The study has been independently viewed by me. The EKG appears to be a good tracing. Chest X-ray: Normal Chest X-Ray. Laboratory Tests: UA-Culture if indicated: (ERIBERTO: 12/17/2016 13:00) ( [facility] 12/17/2016 13:42) Final results Test Result Flag Units (Reference) URINE COLOR YELLOW URINE APPEARANCE CLEAR URINE GLUCOSE NEGATIVE (NEGATIVE) URINE BILIRUBIN NEGATIVE (NEGATIVE) URINE KETONE NEGATIVE (NEGATIVE) URINE SPECIFIC GRAVITY 1.010 (1.010-1.030) URINE PH 5.5 (5.0-8.0) URINE PROTEIN NEGATIVE (NEGATIVE) URINE UROBILINOGEN 0.2 EU/dL (0.2-1.0) URINE NITRITE NEGATIVE (NEGATIVE) URINE BLOOD NEGATIVE (NEGATIVE) URINE LEUK ESTERASE NEGATIVE (NEGATIVE) URINE RBC NONE SEEN rbc/hpf (0-1) URINE WBC 0-1 wbc/hpf (0-1) URINE EPITHELIAL CELLS 5-10 EPI/hpf (0-5) URINE BACTERIA MODERATE (2+ TO 3+) (NONE SEEN) URINE COMMENT CULTURE INDICATED URINE CULTURES ARE SET-UP BASED ON THE FOLLOWING CRITERIA:POSITIVE NITRITEPOSITIVE LEUKOCYTE ESTERASEGREATER THAN 10 WHITE BLOOD CELLSMODERATE (2+) OR GREATER BACTERIA CBC w Diff: (ERIBERTO: 12/17/2016 13:18) ( [facility] 12/17/2016 13:49) Final results Test Result Flag Units (Reference) WHITE BLOOD COUNT 10.4 K/uL (4.5-11.5) RED BLOOD COUNT 4.91 M/uL (4.00-5.20) HEMOGLOBIN 13.6 gm/dL (12.0-16.0) HEMATOCRIT 40.7 % (36.0-46.0) MEAN CELL VOLUME 83 fL (80-100) MEAN CORPUSCULAR HGB 28 pg (26-34) MEAN CORPUSCULAR HGB CONC 33 g/dL (31-37) RED CELL DISTRIBUTION WIDTH 13.9 % (11.6-14.8) PLATELET COUNT 276 K/uL (150-400) NEUTROPHIL % 76.8 H % (50-75) LYMPH % 15.1 L % (25-40) MONO % 4.2 % (3-14) EOSINOPHIL % 3.1 % (0-4) BASOPHIL % 0.8 % (0-2) CHEM 13 PANEL: (ERIBERTO: 12/17/2016 13:18) ( MsgRcvd 12/17/2016 14:24) Final results Test Result Flag Units (Reference) GLUCOSE 96 mg/dL (70-110) BUN 11 mg/dL (7-18) CREATININE 0.8 mg/dL (0.6-1.3) Estimated GFR >60 mL/min Estimated GFR- >60 mL/min Note: Persistent reduction over 3 months in eGFR<60 mL/min/1.73 m2 defines CKD. Patients with eGFR values>=60 mL/min/1.73 m2 may also have CKD if evidence ofpersistent proteinuria. Additional information may be foundat www.kidney.org. SODIUM 139 mmol/L (136-145) POTASSIUM 3.5 mmol/L (3.5-5.1) CHLORIDE 103 mmol/L (98-107) CARBON DIOXIDE 25 mmol/L (21-32) CALCIUM 9.0 mg/dL (8.5-10.1) TOTAL PROTEIN 7.6 g/dL (6.4-8.2) ALBUMIN 3.4 g/dL (3.3-5.0) BILIRUBIN, TOTAL 0.3 mg/dL (0.0-1.0) ALKALINE PHOSPHATASE 104 U/L (46-116) AST (SGOT) 16 U/L (15-37) ALT (SGPT) 15 U/L (12-78) MAGNESIUM 1.9 mg/dL (1.8-2.4) CPK 41 U/L (24-260) TROPONIN I <0.05 ng/mL (0.00-1.5) TROPONIN REFERENCE RANGE:<0.1 NEGATIVE0.1-1.5 INDETERMINANT>1.5 POSITIVE . PROGRESS AND PROCEDURES Course of Care: patient's exam and history are more consistent with carpal tunnel syndrome. Pt notes both hands have gone numb at night. She had pain develop in the left wrist and it radiated up the arm to the mid arm. It is better in laying arm on chest. She became quite anxious that it was not going away and developed transient chest tightness for a few minutes. This symptom is resolved and not reproducible on exam. Pt did get intermittent tachycardia with and never followed up with cardiology. She still has tachycardia with exercise she says. She is counseled to follow up with cold rolling supervisor as recommended. Patient/family counseled. Disposition: Discharged. CLINICAL IMPRESSION Bilateral carpal tunnel , Left greater than right. Anxiety reaction due to pain with resultant chest wall muscle spasm. INSTRUCTIONS No strenuous activity. (Splint for left wrist pain.). Warnings: Further evaluation is necessary. GENERAL WARNINGS: Return or contact your physician immediately if your condition worsens or changes unexpectedly, if not improving as expected, or if other problems arise. Your Current Medications: CONTINUE TAKING THE FOLLOWING MEDICATIONS: Flonase Nasal : 2 sprays daily. OTC Medications: Take ibuprofen (Advil, Nuprin, etc.) according to label instructions. Available over the counter. Follow-up: Follow up with your doctor in one week. Call for an appointment. Follow up with a cold rolling supervisor and neurologist. Call for the next available appointment. Reason for referral: to evaluate for carpal tunnel and palpitations. Understanding of the discharge instructions verbalized by patient. (Electronically signed by Dion Mckenzie MD 12/21/2016 7:38)
--- NOTE | 2016-12-17 15:04 | ED ORDER SUMMARY ---
..... Patient: ANA PICKETT OrderSheet [facility] VisitID: [id number] [place] [address] 36y, F Registration Date/Time: 12/17/2016 ORDER SHEET Weight: 106.5 kg (stated) Allergies: Augmentin, Maxalt, Zolmig GENERAL ORDERS: Marble Installation Helper (Continuous) (12:59 12/17/2016 DDean R.N. per protocol) (13:00 DDean R.N.) Chest 1V Urgent (12:59 12/17/2016 DDean R.N. per protocol) (Ack 13:10 IJurca ER Tech1) (13:26 DDean R.N.) UA-Culture if indicated Urgent (12:59 12/17/2016 DDean R.N. per protocol) (Ack 13:10 IJurca ER Tech1) (13:26 DDean R.N.) Cardiac Panel Stat (12:59 12/17/2016 DDean R.N. per protocol) (Ack 13:10 IJurca ER Tech1) (13:26 DDean R.N.) EKG - ER Stat (12:59 12/17/2016 DDean R.N. per protocol) (Ack 13:10 IJurca ER Tech1) (13:13 RKaruga) POC - Urine hCG (13:09 12/17/2016 DDean R.N. per protocol) (13:09 DDean R.N.) Splint (UE) (Left) (Velcro - wrist) (15:02 12/17/2016 Staci LAURENT) (Ack 15:03 IJurca ER Tech1) (15:17 IJurca ER Tech1) MEDICATION ORDERS: IV FLUIDS: IV Saline Lock (12:59 12/17/2016 DDean R.N. per protocol) (Ack 13:00 DDean R.N.) (13:26 DDean R.N.) ORDER SHEET NOTES: [Electronically signed by Pooja Urias R.N. (18:57 12/17/2016)] [Electronically signed by Dion Mckenzie MD (07:38 12/21/2016)] [Electronically locked/signed by Pooja Urias R.N. (18:57 12/17/2016)]
--- NOTE | 2016-12-21 07:38 | ED MED RECONCILIATION SUMMARY ---
Patient: ANA PICKETT Medication Reconciliation Report [facility] VisitID: [id number] [address] [place] [address] 36y, F Registration Date/Time: 12/17/2016 Weight: 106.5 kg Height/Length: 66 in. BMI: 37.9 ALLERGIES: Augmentin, Maxalt, Zolmig The patient's Home Medications are listed below: CONTINUE TAKING THE FOLLOWING MEDICATIONS: Flonase Nasal 2 sprays, daily The source(s) of the original Home Medication information: Not obtained. The following Medications were given to the patient in the Emergency Department: None. The following Medications were prescribed to the patient: Take ibuprofen (Advil, Nuprin, etc.) according to label instructions. Available over the counter. -- Dion Mckenzie MD
--- NOTE | 2016-12-21 07:38 | ED MAR SUMMARY ---
..... Medication Administration Record [facility] [address], [place] [id number] Patient: ANA PICKETT Visit ID: [id number] 36y, F Weight: 106.5 kg Height/Length: 66 in BMI: 37.9 ALLERGIES: Augmentin, Maxalt, Zolmig
--- NOTE | 2016-12-21 07:38 | ED MED RECONCILIATION SUMMARY ---
Patient: ANA PICKETT Medication Reconciliation Report [facility] VisitID: [id number] [address] [place] [address] 36y, F Registration Date/Time: 12/17/2016 Weight: 106.5 kg Height/Length: 66 in. BMI: 37.9 ALLERGIES: Augmentin, Maxalt, Zolmig The patient's Home Medications are listed below: CONTINUE TAKING THE FOLLOWING MEDICATIONS: Flonase Nasal 2 sprays, daily The source(s) of the original Home Medication information: Not obtained. The following Medications were given to the patient in the Emergency Department: None. The following Medications were prescribed to the patient: Take ibuprofen (Advil, Nuprin, etc.) according to label instructions. Available over the counter. -- Dion Mckenzie MD
--- NOTE | 2016-12-21 07:38 | ED MAR SUMMARY ---
..... Medication Administration Record [facility] [address], [place] [id number] Patient: ANA PICKETT Visit ID: [id number] 36y, F Weight: 106.5 kg Height/Length: 66 in BMI: 37.9 ALLERGIES: Augmentin, Maxalt, Zolmig
--- NOTE | 2016-12-21 07:38 | ED DISCHARGE INSTRUCTIONS ---
Patient: ANA PICEKTT General Instructions [facility] VisitID: [id number] [place] [address] 36y, F Registration Date/Time: 12/17/2016 Bilateral carpal tunnel , Left greater than right. Anxiety reaction due to pain with resultant chest wall muscle spasm. INSTRUCTIONS No strenuous activity. (Splint for left wrist pain.). Warnings: Further evaluation is necessary. GENERAL WARNINGS: Return or contact your physician immediately if your condition worsens or changes unexpectedly, if not improving as expected, or if other problems arise. Your Current Medications: CONTINUE TAKING THE FOLLOWING MEDICATIONS: Flonase Nasal : 2 sprays daily. OTC Medications: Take ibuprofen (Advil, Nuprin, etc.) according to label instructions. Available over the counter. Follow-up: Follow up with your doctor in one week. Call for an appointment. Follow up with a digital account executive and neurologist. Call for the next available appointment. Reason for referral: to evaluate for carpal tunnel and palpitations. Understanding of the discharge instructions verbalized by patient. No strenuous activity. (Electronically signed by Dion Mckenzie MD 12/21/2016 7:38)
--- NOTE | 2016-12-21 07:38 | ED DISCHARGE INSTRUCTIONS ---
Patient: ANA PICKETT General Instructions [facility] VisitID: [id number] [place] [address] 36y, F Registration Date/Time: 12/17/2016 Bilateral carpal tunnel , Left greater than right. Anxiety reaction due to pain with resultant chest wall muscle spasm. INSTRUCTIONS No strenuous activity. (Splint for left wrist pain.). Warnings: Further evaluation is necessary. GENERAL WARNINGS: Return or contact your physician immediately if your condition worsens or changes unexpectedly, if not improving as expected, or if other problems arise. Your Current Medications: CONTINUE TAKING THE FOLLOWING MEDICATIONS: Flonase Nasal : 2 sprays daily. OTC Medications: Take ibuprofen (Advil, Nuprin, etc.) according to label instructions. Available over the counter. Follow-up: Follow up with your doctor in one week. Call for an appointment. Follow up with a ad terminal makeup operator and neurologist. Call for the next available appointment. Reason for referral: to evaluate for carpal tunnel and palpitations. Understanding of the discharge instructions verbalized by patient. No strenuous activity. (Electronically signed by Dion Mckenzie MD 12/21/2016 7:38)
== END 2016-12-17 15:20 | disposition home or self-care (01) ==
LOC: ED SRH 12:38
DX: G56.03 Carpal tunnel syndrome, bilateral upper limbs (principal); F41.9 Anxiety disorder, unspecified; M62.838 Other muscle spasm; Z88.1 Allergy status to other antibiotic agents; Z88.8 Allergy status to other drugs, medicaments and biological substances
CPT/HCPCS: 90004; 90100; 90469; 90616; 92610; 92720; 95059

== ENCOUNTER 2017-01-26 16:13 | Emergency (ER) | payer OTHER ==
--- NOTE | 2017-01-26 17:06 | DIAGNOSTIC IMAGING REPORT ---
PROCEDURE: XR ABD SERIES 2V ABD/1V CHEST INDICATION: DIARRHEA TECHNIQUE: AP supine and upright views with PA view chest. COMPARISON: None. FINDINGS: ABDOMEN: Bowel pattern is normal. No evidence of free air. Soft tissues and osseous structures are normal. CHEST: Lungs are clear. Heart and mediastinum are normal. Thorax is normal. IMPRESSION: 1. Negative acute abdomen series.
--- NOTE | 2017-01-26 18:49 | DIAGNOSTIC IMAGING REPORT ---
PROCEDURE: ABDOMEN/PELVIS WITH CONTRAST CLINICAL INDICATION: ABDOMINAL PAIN TECHNIQUE: 125 ml of Isovue 300 were injected intravenously and axial images were obtained of the abdomen and pelvis with sagittal and coronal reformations. COMPARISON: None. FINDINGS: ABDOMEN: The gallbladder is surgically absent. Clear lung bases. Normal sized heart. No hiatal hernia. The liver, adrenal glands, kidneys, pancreas and spleen are normal. The abdominal aorta is normal in its course and caliber. No atherosclerosis. There are no suspicious calcifications, retroperitoneal adenopathy or masses. The stomach, upper bowel loops, and mesentery are normal. Intact anterior abdominal wall. No free fluid or inflammation. There is a long segment of colon beginning in the mid descending colon through the proximal sigmoid colon which demonstrates mild circumferential wall thickening and pericolonic hyperemia without significant fat stranding. There are no diverticula in the area. No free air, fluid or adjacent fluid collections. PELVIS: The appendix and pelvic small bowel loops are normal. Decreased amount of stool in the colon and rectum. There has this luteum on the right ovary. The uterus, left ovary urinary bladder, and pelvic vessels are normal. No adenopathy, free fluid, or pelvic mass. Intact osseous structures. IMPRESSION: 1. Findings suggestive of mild colitis involving of the mid to distal descending, and proximal sigmoid colon suggestive of an infectious or inflammatory process. 2. No evidence of complication. 3. Surgically absent gallbladder. 4. Discussed with Gila Al in the emergency room. All CT scans at this facility use dose modulation, iterative reconstruction, and/or weight-based dosing when appropriate to reduce radiation dose to as low as reasonably achievable.
--- NOTE | 2017-01-26 19:06 | ED CLINICAL REPORT ---
Clinical Report - Physicians/Mid Levels [facility] [address] [place] [address] 01/26/2017 16:14 Patient: ANA PICKETT Time Seen: 16:32. Arrived- By private vehicle. Historian- patient. HISTORY OF PRESENT ILLNESS Chief Complaint: RECTAL BLEEDING and DARK/TARRY STOOLS. This started today and has been moderate. (Bowel issues changed from her IBS baseline-more constipation-over past month. Went to corrosion prevention metal sprayer and dx w/ prolapse and cysto/rectocele. Today w/ increased diarrhea and bloody mucus.). Is still present. The patient has had dark stools, rectal bleeding, constipation and diarrhea. No nausea or vomiting. (Pt took photo of bloody mucus on phone-and indeed, BRB mixed w/ mucus, couple tablespoons worth). No recent travel. No known contact with a sick individual. Similar symptoms previously: Milder. Recent medical care: The patient was seen recently at another facility in a clinic. REVIEW OF SYSTEMS Last normal menstrual period- December 31. No dizziness, abnormal bleeding, vaginal discharge, fever or chills. No complaint of rectal foreign body. Denies current . PAST HISTORY See nurses notes. dx w/ cystocele,rectocele,uterine prolapse last wk-specialist consult is pending Hx of IBS, eosinophilic esophagitis. No history of peptic ulcer. Has not had GI bleeding. No history of hemorrhoids, hypertension or diabetes mellitus. No rectal fissure. Has not had diverticulitis. Surgeries: . Cholecystectomy. Endoscopy. Sinus surgery. Medications: Flonase Nasal 2 sprays, daily. Allergies: Augmentin.(rash, vomiting) Maxalt. (neck pain and stiffness , N/V) Zolmig. (Neck pain, stiffness, N/V). SOCIAL HISTORY Never smoker. No alcohol use or drug use. ADDITIONAL NOTES The nursing notes have been reviewed. PHYSICAL EXAM Vital Signs: 01/26/2017 16:20 BP: 114/65. HR: 78. RR: 17. O2 saturation: 100%. Temp: 98.3 F. Pain level now: 2/10. Have been reviewed and appear to be correct. Appearance: Alert. Oriented X3. No acute distress. Eyes: Pupils equal, round and reactive to light. Eyes normal inspection. Neck: Normal inspection. Neck supple. CVS: Normal heart rate and rhythm. Heart sounds normal. Respiratory: No respiratory distress. Breath sounds normal. Abdomen: Soft. Mild tenderness in the left lower quadrant. No guarding or rebound tenderness. Bowel sounds normal. Obese. Back: No CVA tenderness. Skin: Skin warm and dry. Normal skin color. Normal skin turgor. Extremities: Extremities exhibit normal ROM. Neuro: Oriented X 3. LABS, X-RAYS, AND EKG Abdominal CT: Normal liver, gallbladder and kidneys. Appendix normal. No mass. No free fluid. No diverticulitis. Colitis, likely infectious, noted. Study type: abdomen and pelvis. Abdominal CT performed with IV contrast. The study was interpreted by the radiologist. Laboratory Tests: Laboratory tests have been ordered, with results reviewed and considered in the medical decision making process. CBC w Diff: (ERIBERTO: 01/26/2017 17:34) ( [facility] 01/26/2017 17:46) Final results Test Result Flag Units (Reference) WHITE BLOOD COUNT 14.4 H K/uL (4.5-11.5) RED BLOOD COUNT 4.98 M/uL (4.00-5.20) HEMOGLOBIN 13.8 gm/dL (12.0-16.0) HEMATOCRIT 41.8 % (36.0-46.0) MEAN CELL VOLUME 84 fL (80-100) MEAN CORPUSCULAR HGB 28 pg (26-34) MEAN CORPUSCULAR HGB CONC 33 g/dL (31-37) RED CELL DISTRIBUTION WIDTH 14.0 % (11.6-14.8) PLATELET COUNT 278 K/uL (150-400) NEUTROPHIL % 80.9 H % (50-75) LYMPH % 14.2 L % (25-40) MONO % 3.3 % (3-14) EOSINOPHIL % 1.3 % (0-4) BASOPHIL % 0.3 % (0-2) CMP: (ERIBERTO: 01/26/2017 17:34) ( [facility] 01/26/2017 17:59) Final results Test Result Flag Units (Reference) GLUCOSE 95 mg/dL (70-110) BUN 12 mg/dL (7-18) CREATININE 0.7 mg/dL (0.6-1.3) Estimated GFR >60 mL/min Estimated GFR- >60 mL/min Note: Persistent reduction over 3 months in eGFR<60 mL/min/1.73 m2 defines CKD. Patients with eGFR values>=60 mL/min/1.73 m2 may also have CKD if evidence ofpersistent proteinuria. Additional information may be foundat www.kidney.org. SODIUM 141 mmol/L (136-145) POTASSIUM 4.0 mmol/L (3.5-5.1) CHLORIDE 105 mmol/L (98-107) CARBON DIOXIDE 25 mmol/L (21-32) CALCIUM 9.4 mg/dL (8.5-10.1) TOTAL PROTEIN 7.8 g/dL (6.4-8.2) ALBUMIN 3.4 g/dL (3.3-5.0) BILIRUBIN, TOTAL 0.2 mg/dL (0.0-1.0) ALKALINE PHOSPHATASE 100 U/L (46-116) AST (SGOT) 14 L U/L (15-37) ALT (SGPT) 20 U/L (12-78) . PROGRESS AND PROCEDURES Course of Care: Findings reviewed w/ patient Levaquin and flagyl for potential infectious, but advised discussing colonoscopy to eval for other underlying conditions. Patient is stable. Patient counseled in person regarding the patient's condition, test results, diagnosis and need for additional testing and follow-up. Disposition: Discharged. Condition: stable. CLINICAL IMPRESSION Acute infectious colitis. INSTRUCTIONS No restrictions to activity. Do not work tomorrow. Drink plenty of fluids. Avoid alcohol and NSAIDS. Examples of NSAIDS include aspirin, ibuprofen (Advil) and naproxen (Aleve). Avoid lactose-containing (such as milk, cheese and ice cream) foods. (Consider colonoscopy after resolved). Warnings: GENERAL WARNINGS: Return or contact your physician immediately if your condition worsens or changes unexpectedly, if not improving as expected, or if other problems arise. Your Current Medications: CONTINUE TAKING THE FOLLOWING MEDICATIONS: Flonase Nasal : 2 sprays daily. Prescription Medications: Zofran (orally disintegrating tablets) 4 mg: take 1 orally every 8 hours as needed for nausea. Dispense ten (10). No refill. Flagyl 500 mg: Take 1 tablet orally every 12 hours for 10 days Levaquin 500 mg: take 1 tab orally every day for 10 days. No refills. Miralax: take 1 measuring cupful supplied mixed in 8 ounces fluid every day. Dispense fourteen (14) ounce bottle. No refills. OTC Medications: Senokot S (8.6 mg with docusate sodium 50 mg): Take 1 orally every 12 hours. Dispense thirty (30). No refills. Follow-up: Follow up with a cesspool cleaner- as recommended by your primary care physician. Follow up with your doctor. Call for the next available appointment. Understanding of the discharge instructions verbalized by patient. (Electronically signed by Gila Al A.R.N.P. 01/26/2017 21:59)
--- NOTE | 2017-01-26 19:06 | ED NURSING NOTES ---
Clinical Report - Nurses [facility] [address] [place] [address] 01/26/2017 16:14 Patient: ANA PICKETT TRIAGE Triage time 16:20 Jan 26 2017. Chief Complaint: (pt saw email developer on tuesday, was told she has a prolapse rectum, bladder wall and cervix, scheduled to see specialist. pt reports "months of constipation" having to take exlax, today pt began having bm's today that was dark, which turned to diarrhea, then to "yellow bile like" and "now it's just blood and mucous"). Alert. No acute distress. SEPSIS SCREEN: Sepsis Screen. Negative (no infection suspected/documented). --16:28 Alan Elise R.N. 16:20 01/26/17. BP: 114/65 taken on the left arm, while lying. HR: 78. RR: 17. O2 saturation: 100%. Temp: 98.3 F. Pain level now: 10/15. --16:28 Alan Elise R.N. Weight: 105.6 kg stated. Height/Length: 66 inches Per Patient. BMI: 37.6. --16:25 Alan Elise R.N. Medications Flonase Nasal 2 sprays, daily. --16:24 Alan Elise R.N. Medication/allergy information source: the patient. --16:28 Alan Elise R.N. Allergies Augmentin.(rash, vomiting) Maxalt. (neck pain and stiffness , N/V) Zolmig. (Neck pain, stiffness, N/V) --16:24 Alan Elise R.N. History Arrived by private vehicle. Historian: patient. Onset. (1 months). She has had diarrhea and constipation. Treatment ENDO TECH: None. PAST MEDICAL HX: Immunizations: up-to-date. Last normal menstrual period- December 312016. SOCIAL HX: Never smoker. No alcohol use or drug use. No recent travel. No infectious disease exposure. No known contact with a sick individual. ABUSE ASSESSMENT: No report of abuse. SELF HARM ASSESSMENT: A self harm assessment was performed. The patient answered "no" to the question "Do you have thoughts of harming or killing yourself?". FALL RISK ASSESSMENT: Fall risk assessment completed. No fall risk identified. NUTRITIONAL RISK ASSESSMENT: The nutritional risk assessment revealed no deficiencies. FUNCTIONAL ASSESSMENT: Functional assessment: no impairments noted. LEARNING NEEDS ASSESSMENT: The learning needs assessment revealed no barriers. SKIN INTEGRITY ASSESSMENT: Skin integrity risk assessment completed. No skin integrity risk identified. --16:28 Alan Elise R.N. PROBLEMS: Fibromyalgia. PCOS. IBS. Bronchitis. Sinusitis. Chronic Headache. Gastroesophageal Reflux Disease. Palpitations. Hernia. GERD. --16:24 Alan Elise R.N. ADDITIONAL SURGERIES: Cholecystectomy. . Endoscopy. Sinus Surgery. --16:24 Alan Elise R.N. Interventions ID and allergy band on patient. --16:28 Alan Elise R.N. PHYSICAL ASSESSMENT Ambulatory to room. Patient gowned. GENERAL / NEURO / PSYCH: Alert. Oriented X 4. Appears in no acute distress. HEENT: Mucous membranes are pink. RESPIRATORY: Respirations not labored. CVS: Capillary refill less than 2 seconds. GI / : Abdomen soft. Bowel sounds within normal limits. SKIN: Skin is warm and dry. --16:29 Alan Elise R.N. NURSING PROGRESS NOTES Monitoring of patient in place. Patient gowned. Head of bed elevated. Reassurance given. Patient identifiers checked. Call light placed in reach. Side rails up x 1. Bed placed in lowest position. Brakes of bed on. Patient ready for evaluation- chart flagged. Patient waiting for evaluation. --16:29 lAan Elise R.N. 17:33 01/26/2017 Site #1 started via IV in the right antecubital space with an 20g angiocath; one attempt. Blood drawn: rainbow set. Labeled in the presence of the patient and sent to the lab. Saline lock flushed with 10 mL saline. --17:38 Alan Elise R.N. 19:11 01/26/17. BP: 111/66. RR: 15. O2 saturation: 100%. --19:13 Alan Elise R.N. 18 19:January 26 2017:Jan 26 2017. Patient identifiers checked. Call light placed in reach. Side rails up. Bed placed in lowest position. Brakes of bed on. Patient waiting for results. --19:13 Alan Elise R.N. 19:20 01/26/2017 Levaquin (Levofloxacin) PO 500 mg given. Allergies verified and confirmed 5 rights. --19:25 Alan Elise R.N. 19:20 01/26/2017 Flagyl (MetroNIDAZOLE) PO 500 mg given. Allergies verified and confirmed 5 rights. --19:25 Alan Elise R.N. DISPOSITION / DISCHARGE 19:20 01/26/2017 Site #1 removed upon discharge. Bandaid applied. --19:25 Alan Elise R.N. No learning barriers present. Discharge instructions provided and reviewed with the patient. Reviewed medication(s) side effects, precautions, dosing and course information. Prescription(s) given to the patient. Work note given. Patient verbalized understanding. Written instructions provided in Greek. The patient was discharged by the nurse practitioner. She was discharged home. She left the Emergency Department ambulatory and via private vehicle. Patient driving. --19:27 Alan Elise R.N. 19:25 01/26/17. BP: 119/74. HR: 77. RR: 15. O2 saturation: 100%. Temp: 97.8 F. Pain level now: 12/13. --19:27 Alan Elise R.N. Locked/Released at 01/26/2017 19:28 by Alan Elise R.N.
--- NOTE | 2017-01-26 19:06 | ED NURSING NOTES ---
Clinical Report - Nurses [facility] [address] [place] [address] 01/26/2017 16:14 Patient: ANA PICKETT TRIAGE Triage time 16:20 Jan 26 2017. Chief Complaint: (pt saw masonry inspector on tuesday, was told she has a prolapse rectum, bladder wall and cervix, scheduled to see specialist. pt reports "months of constipation" having to take exlax, today pt began having bm's today that was dark, which turned to diarrhea, then to "yellow bile like" and "now it's just blood and mucous"). Alert. No acute distress. SEPSIS SCREEN: Sepsis Screen. Negative (no infection suspected/documented). --16:28 Alan Elise R.N. 16:20 01/26/17. BP: 114/65 taken on the left arm, while lying. HR: 78. RR: 17. O2 saturation: 100%. Temp: 98.3 F. Pain level now: 10/15. --16:28 Alan Elise R.N. Weight: 105.6 kg stated. Height/Length: 66 inches Per Patient. BMI: 37.6. --16:25 Alan Elise R.N. Medications Flonase Nasal 2 sprays, daily. --16:24 Alan Elise R.N. Medication/allergy information source: the patient. --16:28 Alan Elise R.N. Allergies Augmentin.(rash, vomiting) Maxalt. (neck pain and stiffness , N/V) Zolmig. (Neck pain, stiffness, N/V) --16:24 Alan Elise R.N. History Arrived by private vehicle. Historian: patient. Onset. (1 months). She has had diarrhea and constipation. Treatment PROTEIN SPECIALIST: None. PAST MEDICAL HX: Immunizations: up-to-date. Last normal menstrual period- December 312016. SOCIAL HX: Never smoker. No alcohol use or drug use. No recent travel. No infectious disease exposure. No known contact with a sick individual. ABUSE ASSESSMENT: No report of abuse. SELF HARM ASSESSMENT: A self harm assessment was performed. The patient answered "no" to the question "Do you have thoughts of harming or killing yourself?". FALL RISK ASSESSMENT: Fall risk assessment completed. No fall risk identified. NUTRITIONAL RISK ASSESSMENT: The nutritional risk assessment revealed no deficiencies. FUNCTIONAL ASSESSMENT: Functional assessment: no impairments noted. LEARNING NEEDS ASSESSMENT: The learning needs assessment revealed no barriers. SKIN INTEGRITY ASSESSMENT: Skin integrity risk assessment completed. No skin integrity risk identified. --16:28 Alan Elise R.N. PROBLEMS: Fibromyalgia. PCOS. IBS. Bronchitis. Sinusitis. Chronic Headache. Gastroesophageal Reflux Disease. Palpitations. Hernia. GERD. --16:24 Alan Elise R.N. ADDITIONAL SURGERIES: Cholecystectomy. . Endoscopy. Sinus Surgery. --16:24 Alan Elise R.N. Interventions ID and allergy band on patient. --16:28 Alan Elise R.N. PHYSICAL ASSESSMENT Ambulatory to room. Patient gowned. GENERAL / NEURO / PSYCH: Alert. Oriented X 4. Appears in no acute distress. HEENT: Mucous membranes are pink. RESPIRATORY: Respirations not labored. CVS: Capillary refill less than 2 seconds. GI / : Abdomen soft. Bowel sounds within normal limits. SKIN: Skin is warm and dry. --16:29 Alan Elise R.N. NURSING PROGRESS NOTES Monitoring of patient in place. Patient gowned. Head of bed elevated. Reassurance given. Patient identifiers checked. Call light placed in reach. Side rails up x 1. Bed placed in lowest position. Brakes of bed on. Patient ready for evaluation- chart flagged. Patient waiting for evaluation. --16:29 Alan Elise R.N. 17:33 01/26/2017 Site #1 started via IV in the right antecubital space with an 20g angiocath; one attempt. Blood drawn: rainbow set. Labeled in the presence of the patient and sent to the lab. Saline lock flushed with 10 mL saline. --17:38 Alan Elise R.N. 19:11 01/26/17. BP: 111/66. RR: 15. O2 saturation: 100%. --19:13 Alan Elise R.N. 18 19:January 26 2017:Jan 26 2017. Patient identifiers checked. Call light placed in reach. Side rails up. Bed placed in lowest position. Brakes of bed on. Patient waiting for results. --19:13 Alan Elise R.N. 19:20 01/26/2017 Levaquin (Levofloxacin) PO 500 mg given. Allergies verified and confirmed 5 rights. --19:25 Alan Elise R.N. 19:20 01/26/2017 Flagyl (MetroNIDAZOLE) PO 500 mg given. Allergies verified and confirmed 5 rights. --19:25 Alan Elise R.N. DISPOSITION / DISCHARGE 19:20 01/26/2017 Site #1 removed upon discharge. Bandaid applied. --19:25 Alan Elise R.N. No learning barriers present. Discharge instructions provided and reviewed with the patient. Reviewed medication(s) side effects, precautions, dosing and course information. Prescription(s) given to the patient. Work note given. Patient verbalized understanding. Written instructions provided in Lao. The patient was discharged by the nurse practitioner. She was discharged home. She left the Emergency Department ambulatory and via private vehicle. Patient driving. --19:27 Alan Elise R.N. 19:25 01/26/17. BP: 119/74. HR: 77. RR: 15. O2 saturation: 100%. Temp: 97.8 F. Pain level now: 12/13. --19:27 Alan Elise R.N. Locked/Released at 01/26/2017 19:28 by Alan Elise R.N.
--- NOTE | 2017-01-26 19:06 | ED CLINICAL REPORT ---
Clinical Report - Physicians/Mid Levels [facility] [address] [place] [address] 01/26/2017 16:14 Patient: ANA PICKETT Time Seen: 16:32. Arrived- By private vehicle. Historian- patient. HISTORY OF PRESENT ILLNESS Chief Complaint: RECTAL BLEEDING and DARK/TARRY STOOLS. This started today and has been moderate. (Bowel issues changed from her IBS baseline-more constipation-over past month. Went to swim instructor and dx w/ prolapse and cysto/rectocele. Today w/ increased diarrhea and bloody mucus.). Is still present. The patient has had dark stools, rectal bleeding, constipation and diarrhea. No nausea or vomiting. (Pt took photo of bloody mucus on phone-and indeed, BRB mixed w/ mucus, couple tablespoons worth). No recent travel. No known contact with a sick individual. Similar symptoms previously: Milder. Recent medical care: The patient was seen recently at another facility in a clinic. REVIEW OF SYSTEMS Last normal menstrual period- December 31. No dizziness, abnormal bleeding, vaginal discharge, fever or chills. No complaint of rectal foreign body. Denies current . PAST HISTORY See nurses notes. dx w/ cystocele,rectocele,uterine prolapse last wk-specialist consult is pending Hx of IBS, eosinophilic esophagitis. No history of peptic ulcer. Has not had GI bleeding. No history of hemorrhoids, hypertension or diabetes mellitus. No rectal fissure. Has not had diverticulitis. Surgeries: . Cholecystectomy. Endoscopy. Sinus surgery. Medications: Flonase Nasal 2 sprays, daily. Allergies: Augmentin.(rash, vomiting) Maxalt. (neck pain and stiffness , N/V) Zolmig. (Neck pain, stiffness, N/V). SOCIAL HISTORY Never smoker. No alcohol use or drug use. ADDITIONAL NOTES The nursing notes have been reviewed. PHYSICAL EXAM Vital Signs: 01/26/2017 16:20 BP: 114/65. HR: 78. RR: 17. O2 saturation: 100%. Temp: 98.3 F. Pain level now: 2/10. Have been reviewed and appear to be correct. Appearance: Alert. Oriented X3. No acute distress. Eyes: Pupils equal, round and reactive to light. Eyes normal inspection. Neck: Normal inspection. Neck supple. CVS: Normal heart rate and rhythm. Heart sounds normal. Respiratory: No respiratory distress. Breath sounds normal. Abdomen: Soft. Mild tenderness in the left lower quadrant. No guarding or rebound tenderness. Bowel sounds normal. Obese. Back: No CVA tenderness. Skin: Skin warm and dry. Normal skin color. Normal skin turgor. Extremities: Extremities exhibit normal ROM. Neuro: Oriented X 3. LABS, X-RAYS, AND EKG Abdominal CT: Normal liver, gallbladder and kidneys. Appendix normal. No mass. No free fluid. No diverticulitis. Colitis, likely infectious, noted. Study type: abdomen and pelvis. Abdominal CT performed with IV contrast. The study was interpreted by the radiologist. Laboratory Tests: Laboratory tests have been ordered, with results reviewed and considered in the medical decision making process. CBC w Diff: (ERIBERTO: 01/26/2017 17:34) ( [facility] 01/26/2017 17:46) Final results Test Result Flag Units (Reference) WHITE BLOOD COUNT 14.4 H K/uL (4.5-11.5) RED BLOOD COUNT 4.98 M/uL (4.00-5.20) HEMOGLOBIN 13.8 gm/dL (12.0-16.0) HEMATOCRIT 41.8 % (36.0-46.0) MEAN CELL VOLUME 84 fL (80-100) MEAN CORPUSCULAR HGB 28 pg (26-34) MEAN CORPUSCULAR HGB CONC 33 g/dL (31-37) RED CELL DISTRIBUTION WIDTH 14.0 % (11.6-14.8) PLATELET COUNT 278 K/uL (150-400) NEUTROPHIL % 80.9 H % (50-75) LYMPH % 14.2 L % (25-40) MONO % 3.3 % (3-14) EOSINOPHIL % 1.3 % (0-4) BASOPHIL % 0.3 % (0-2) CMP: (ERIBERTO: 01/26/2017 17:34) ( [facility] 01/26/2017 17:59) Final results Test Result Flag Units (Reference) GLUCOSE 95 mg/dL (70-110) BUN 12 mg/dL (7-18) CREATININE 0.7 mg/dL (0.6-1.3) Estimated GFR >60 mL/min Estimated GFR- >60 mL/min Note: Persistent reduction over 3 months in eGFR<60 mL/min/1.73 m2 defines CKD. Patients with eGFR values>=60 mL/min/1.73 m2 may also have CKD if evidence ofpersistent proteinuria. Additional information may be foundat www.kidney.org. SODIUM 141 mmol/L (136-145) POTASSIUM 4.0 mmol/L (3.5-5.1) CHLORIDE 105 mmol/L (98-107) CARBON DIOXIDE 25 mmol/L (21-32) CALCIUM 9.4 mg/dL (8.5-10.1) TOTAL PROTEIN 7.8 g/dL (6.4-8.2) ALBUMIN 3.4 g/dL (3.3-5.0) BILIRUBIN, TOTAL 0.2 mg/dL (0.0-1.0) ALKALINE PHOSPHATASE 100 U/L (46-116) AST (SGOT) 14 L U/L (15-37) ALT (SGPT) 20 U/L (12-78) . PROGRESS AND PROCEDURES Course of Care: Findings reviewed w/ patient Levaquin and flagyl for potential infectious, but advised discussing colonoscopy to eval for other underlying conditions. Patient is stable. Patient counseled in person regarding the patient's condition, test results, diagnosis and need for additional testing and follow-up. Disposition: Discharged. Condition: stable. CLINICAL IMPRESSION Acute infectious colitis. INSTRUCTIONS No restrictions to activity. Do not work tomorrow. Drink plenty of fluids. Avoid alcohol and NSAIDS. Examples of NSAIDS include aspirin, ibuprofen (Advil) and naproxen (Aleve). Avoid lactose-containing (such as milk, cheese and ice cream) foods. (Consider colonoscopy after resolved). Warnings: GENERAL WARNINGS: Return or contact your physician immediately if your condition worsens or changes unexpectedly, if not improving as expected, or if other problems arise. Your Current Medications: CONTINUE TAKING THE FOLLOWING MEDICATIONS: Flonase Nasal : 2 sprays daily. Prescription Medications: Zofran (orally disintegrating tablets) 4 mg: take 1 orally every 8 hours as needed for nausea. Dispense ten (10). No refill. Flagyl 500 mg: Take 1 tablet orally every 12 hours for 10 days Levaquin 500 mg: take 1 tab orally every day for 10 days. No refills. Miralax: take 1 measuring cupful supplied mixed in 8 ounces fluid every day. Dispense fourteen (14) ounce bottle. No refills. OTC Medications: Senokot S (8.6 mg with docusate sodium 50 mg): Take 1 orally every 12 hours. Dispense thirty (30). No refills. Follow-up: Follow up with a ring facer- as recommended by your primary care physician. Follow up with your doctor. Call for the next available appointment. Understanding of the discharge instructions verbalized by patient. (Electronically signed by Gila Al A.R.N.P. 01/26/2017 21:59)
--- NOTE | 2017-01-26 19:06 | ED ORDER SUMMARY ---
..... Patient: ANA PICKETT OrderSheet [facility] VisitID: [id number] [place] [address] 36y, F Registration Date/Time: 01/26/2017 ORDER SHEET Weight: 105.6 kg (stated) Allergies: Augmentin, Maxalt, Zolmig GENERAL ORDERS: Abd Series 2V Abd/1V Chest (BRB) Urgent (16:37 01/26/2017 SThom A.R.N.P.) (Ack 16:59 ALawrence ER Tech1) (17:38 KPage-Kuchan R.N.) CT Abd/Pel w Cont (No) (N/A) (BRBPR) Urgent (17:20 01/26/2017 SThom A.R.N.P.) (Ack 17:23 KHoerner) (17:38 KPage-Kuchan R.N.) CBC w Diff Urgent (17:20 01/26/2017 SThom A.R.N.P.) (Ack 17:23 KHoerner) (17:38 KPage-Kuchan R.N.) CMP Urgent (17:20 01/26/2017 SThom A.R.N.P.) (Ack 17:23 KHoerner) (17:38 KPage-Kuchan R.N.) MEDICATION ORDERS: Levaquin PO 500 mg (NOW) (19:02 01/26/2017 SThom A.R.N.P.) (Ack 19:13 KPage-Kuchan R.N.) (19:25 KPage-Kuchan R.N.) Flagyl PO 500 mg (NOW) (19:02 01/26/2017 SThom A.R.N.P.) (Ack 19:13 KPage-Kuchan R.N.) (19:25 KPage-Kuchan R.N.) IV FLUIDS: IV Saline Lock (17:22 01/26/2017 SThom A.R.N.P.) (17:38 KPage-Kuchan R.N.) ORDER SHEET NOTES: [Electronically signed by Alan Elise R.N. (01/26/2017)] [Electronically signed by Gila Al (21:59 01/26/2017)] [Electronically locked/signed by Alan Elise R.N. (01/26/2017)]
--- NOTE | 2017-01-26 19:06 | ED ORDER SUMMARY ---
..... Patient: ANA PICKETT OrderSheet [facility] VisitID: [id number] [place] [address] 36y, F Registration Date/Time: 01/26/2017 ORDER SHEET Weight: 105.6 kg (stated) Allergies: Augmentin, Maxalt, Zolmig GENERAL ORDERS: Abd Series 2V Abd/1V Chest (BRB) Urgent (16:37 01/26/2017 SThom A.R.N.P.) (Ack 16:59 ALawrence ER Tech1) (17:38 KPage-Kuchan R.N.) CT Abd/Pel w Cont (No) (N/A) (BRBPR) Urgent (17:20 01/26/2017 SThom A.R.N.P.) (Ack 17:23 KHoerner) (17:38 KPage-Kuchan R.N.) CBC w Diff Urgent (17:20 01/26/2017 SThom A.R.N.P.) (Ack 17:23 KHoerner) (17:38 KPage-Kuchan R.N.) CMP Urgent (17:20 01/26/2017 SThom A.R.N.P.) (Ack 17:23 KHoerner) (17:38 KPage-Kuchan R.N.) MEDICATION ORDERS: Levaquin PO 500 mg (NOW) (19:02 01/26/2017 SThom A.R.N.P.) (Ack 19:13 KPage-Kuchan R.N.) (19:25 KPage-Kuchan R.N.) Flagyl PO 500 mg (NOW) (19:02 01/26/2017 SThom A.R.N.P.) (Ack 19:13 KPage-Kuchan R.N.) (19:25 KPage-Kuchan R.N.) IV FLUIDS: IV Saline Lock (17:22 01/26/2017 SThom A.R.N.P.) (17:38 KPage-Kuchan R.N.) ORDER SHEET NOTES: [Electronically signed by Alan Elise R.N. (01/26/2017)] [Electronically signed by Gila Al (21:59 01/26/2017)] [Electronically locked/signed by Alan Elise R.N. (01/26/2017)]
--- NOTE | 2017-01-26 21:59 | ED DISCHARGE INSTRUCTIONS ---
Patient: ANA PICKETT General Instructions [facility] VisitID: [id number] [place] [address] 36y, F Registration Date/Time: 01/26/2017 Acute infectious colitis. INSTRUCTIONS No restrictions to activity. Do not work tomorrow. Drink plenty of fluids. Avoid alcohol and NSAIDS. Examples of NSAIDS include aspirin, ibuprofen (Advil) and naproxen (Aleve). Avoid lactose-containing (such as milk, cheese and ice cream) foods. (Consider colonoscopy after resolved). Warnings: GENERAL WARNINGS: Return or contact your physician immediately if your condition worsens or changes unexpectedly, if not improving as expected, or if other problems arise. Your Current Medications: CONTINUE TAKING THE FOLLOWING MEDICATIONS: Flonase Nasal : 2 sprays daily. Prescription Medications: Zofran (orally disintegrating tablets) 4 mg: take 1 orally every 8 hours as needed for nausea. Dispense ten (10). No refill. Flagyl 500 mg: Take 1 tablet orally every 12 hours for 10 days Levaquin 500 mg: take 1 tab orally every day for 10 days. No refills. Miralax: take 1 measuring cupful supplied mixed in 8 ounces fluid every day. Dispense fourteen (14) ounce bottle. No refills. OTC Medications: Senokot S (8.6 mg with docusate sodium 50 mg): Take 1 orally every 12 hours. Dispense thirty (30). No refills. Follow-up: Follow up with a prototype engineer- as recommended by your primary care physician. Follow up with your doctor. Call for the next available appointment. Understanding of the discharge instructions verbalized by patient. No restrictions to activity. Do not work tomorrow. (Electronically signed by Gila Al A.R.N.P. 01/26/2017 21:59)
--- NOTE | 2017-01-26 21:59 | ED MED RECONCILIATION SUMMARY ---
Patient: ANA PICKETT Medication Reconciliation Report [facility] VisitID: [id number] [place] [address] 36y, F Registration Date/Time: 01/26/2017 Weight: 105.6 kg Height/Length: 66 in. BMI: 37.6 ALLERGIES: Augmentin, Maxalt, Zolmig The patient's Home Medications are listed below: CONTINUE TAKING THE FOLLOWING MEDICATIONS: Flonase Nasal 2 sprays, daily The source(s) of the original Home Medication information: patient The following Medications were given to the patient in the Emergency Department: Levaquin [PO] PO 500 mg, administered: 01/26/2017 7:20:00 PM Flagyl [PO] PO 500 mg, administered: 01/26/2017 7:20:00 PM The following Medications were prescribed to the patient: Zofran (orally disintegrating tablets) 4 mg: take 1 orally every 8 hours as needed for nausea. Dispense ten (10). No refill. -- Gila Al A.R.N.PLexie Flagyl 500 mg: Take 1 tablet orally every 12 hours for 10 days -- Gila Al A.R.N.P. Levaquin 500 mg: take 1 tab orally every day for 10 days. No refills. -- Gila Al A.R.N.P. Senokot S (8.6 mg with docusate sodium 50 mg): Take 1 orally every 12 hours. Dispense thirty (30). No refills. -- Gila Al A.R.N.PLexie Miralax: take 1 measuring cupful supplied mixed in 8 ounces fluid every day. Dispense fourteen (14) ounce bottle. No refills. -- Gila Al A.R.N.PLexie
--- NOTE | 2017-01-26 21:59 | ED MAR SUMMARY ---
..... Medication Administration Record [facility] [address] [place] [address] Patient: ANA PICKETT Visit ID: [id number] 36y, F Weight: 105.6 kg Height/Length: 66 in BMI: 37.6 ALLERGIES: Augmentin, Maxalt, Zolmig Given 19:01/26/2017 Alan Elise, RLexieN. Medication Administered: LEVAQUIN [PO] (LEVOFLOXACIN), Dose: 500 mg PO. Medication Ordered: Levaquin PO 500 mg (NOW). Given 19:01/26/2017 Alan Elise, RLexieN. Medication Administered: FLAGYL [PO] (METRONIDAZOLE), Dose: 500 mg PO. Medication Ordered: Flagyl PO 500 mg (NOW).
--- NOTE | 2017-01-26 21:59 | ED MED RECONCILIATION SUMMARY ---
Patient: ANA PICKETT Medication Reconciliation Report [facility] VisitID: [id number] [place] [address] 36y, F Registration Date/Time: 01/26/2017 Weight: 105.6 kg Height/Length: 66 in. BMI: 37.6 ALLERGIES: Augmentin, Maxalt, Zolmig The patient's Home Medications are listed below: CONTINUE TAKING THE FOLLOWING MEDICATIONS: Flonase Nasal 2 sprays, daily The source(s) of the original Home Medication information: patient The following Medications were given to the patient in the Emergency Department: Levaquin [PO] PO 500 mg, administered: 01/26/2017 7:20:00 PM Flagyl [PO] PO 500 mg, administered: 01/26/2017 7:20:00 PM The following Medications were prescribed to the patient: Zofran (orally disintegrating tablets) 4 mg: take 1 orally every 8 hours as needed for nausea. Dispense ten (10). No refill. -- Gila Al A.R.N.PLexie Flagyl 500 mg: Take 1 tablet orally every 12 hours for 10 days -- Gila Al A.R.N.P. Levaquin 500 mg: take 1 tab orally every day for 10 days. No refills. -- Gila Al A.R.N.P. Senokot S (8.6 mg with docusate sodium 50 mg): Take 1 orally every 12 hours. Dispense thirty (30). No refills. -- Gila Al A.R.N.PLexie Miralax: take 1 measuring cupful supplied mixed in 8 ounces fluid every day. Dispense fourteen (14) ounce bottle. No refills. -- Gila Al A.R.N.PLexie
--- NOTE | 2017-01-26 21:59 | ED MAR SUMMARY ---
..... Medication Administration Record [facility] [address] [place] [address] Patient: ANA PICKETT Visit ID: [id number] 36y, F Weight: 105.6 kg Height/Length: 66 in BMI: 37.6 ALLERGIES: Augmentin, Maxalt, Zolmig Given 19:01/26/2017 Alan Elise, RLexieN. Medication Administered: LEVAQUIN [PO] (LEVOFLOXACIN), Dose: 500 mg PO. Medication Ordered: Levaquin PO 500 mg (NOW). Given 19:01/26/2017 Alan Elise, RLexieN. Medication Administered: FLAGYL [PO] (METRONIDAZOLE), Dose: 500 mg PO. Medication Ordered: Flagyl PO 500 mg (NOW).
--- NOTE | 2017-01-26 21:59 | ED DISCHARGE INSTRUCTIONS ---
Patient: ANA PICKETT General Instructions [facility] VisitID: [id number] [place] [address] 36y, F Registration Date/Time: 01/26/2017 Acute infectious colitis. INSTRUCTIONS No restrictions to activity. Do not work tomorrow. Drink plenty of fluids. Avoid alcohol and NSAIDS. Examples of NSAIDS include aspirin, ibuprofen (Advil) and naproxen (Aleve). Avoid lactose-containing (such as milk, cheese and ice cream) foods. (Consider colonoscopy after resolved). Warnings: GENERAL WARNINGS: Return or contact your physician immediately if your condition worsens or changes unexpectedly, if not improving as expected, or if other problems arise. Your Current Medications: CONTINUE TAKING THE FOLLOWING MEDICATIONS: Flonase Nasal : 2 sprays daily. Prescription Medications: Zofran (orally disintegrating tablets) 4 mg: take 1 orally every 8 hours as needed for nausea. Dispense ten (10). No refill. Flagyl 500 mg: Take 1 tablet orally every 12 hours for 10 days Levaquin 500 mg: take 1 tab orally every day for 10 days. No refills. Miralax: take 1 measuring cupful supplied mixed in 8 ounces fluid every day. Dispense fourteen (14) ounce bottle. No refills. OTC Medications: Senokot S (8.6 mg with docusate sodium 50 mg): Take 1 orally every 12 hours. Dispense thirty (30). No refills. Follow-up: Follow up with a decontamination worker- as recommended by your primary care physician. Follow up with your doctor. Call for the next available appointment. Understanding of the discharge instructions verbalized by patient. No restrictions to activity. Do not work tomorrow. (Electronically signed by Gila Al A.R.N.P. 01/26/2017 21:59)
== END 2017-01-26 19:24 | disposition home or self-care (01) ==
LOC: ED SRH 16:13
DX: A09 Infectious gastroenteritis and colitis, unspecified (principal); K21.9 Gastro-esophageal reflux disease without esophagitis; Z88.8 Allergy status to other drugs, medicaments and biological substances; Z88.1 Allergy status to other antibiotic agents
CPT/HCPCS: 90100; 95059

== ENCOUNTER 2017-02-09 10:13 | Outpatient (CLI) | payer OTHER | END 2017-02-09 23:00 | LOC: LAB SRH 10:13 | DX: N92.1 Excessive and frequent menstruation with irregular cycle (principal) | CPT/HCPCS: 90047; 90074; 92710; 93075; 93140; 94001; 94060; 95059 ==